=== PATIENT | male | born 1960 | race Caucasian/White ===

== ENCOUNTER 2019-06-27 17:03 | Observation (INO) | payer MEDICAID ==
[~2019-06-27] VITALS: Ht 180.3 cm; Wt 88.2 kg
[2019-06-27] MEDS ORDERED: NEURONTIN 400400 MG PO (17:12)
[2019-06-27] MEDS ORDERED: NAPROSYN500 MG PO (17:14)
[2019-06-27] MEDS ORDERED: PRINIVIL10 MG PO (17:14)
[2019-06-27] MEDS ORDERED: TRAZODONE HCL150 MG PO (17:15)
[2019-06-27] MEDS ORDERED: CRESTOR5 MG PO (17:15)
[2019-06-27] MEDS ORDERED: MOBIC7.5 MG PO (17:15)
[2019-06-27 17:30] VITALS: BP 141/68
[2019-06-27 17:45] LABS: BASOPHILS 0.5 % (0-2); EOSINOPHILS 2.8 % (0-7); HEMATOCRIT 45.7 % (42.0-54.0); IMMATURE GRANULOCYTES 0.1 % (0-5); LYMPHOCYTES 40.4 % (15-50); MCH 31.1 pg (26.0-34.0); MCV 88.9 fL (80.0-100.0); MEAN PLATELET VOLUME 11.5 fL (7.4-10.4); MONOCYTES 9.4 % (2-11); NEUTROPHILS 46.8 % (40-80); PLATELET COUNT 174 10x3/uL (130-400); RBC 5.14 10x6/uL (4.20-6.10); RDW 14.2 % (11.5-14.5); WBC 8.3 10x3/uL (4.8-10.8)
[2019-06-27 17:56] LABS: APTT 27.4 SECONDS (22.8-39.4); INR 1.08 (0.85-1.17); PROTIME 13.5 SECONDS (11.6-15.0)
[2019-06-27 18:10] LABS: ALBUMIN 3.7 g/dL (3.4-5.0); ALKALINE PHOSPHATASE 105 U/L (46-116); ALT (SGPT) 177 U/L (10-68); BILIRUBIN - TOTAL 0.45 mg/dL (0.2-1.3); CALC OSMOLALITY 281 mosm/kg (275-300); CALCIUM 8.6 mg/dL (8.5-10.1); CARBON DIOXIDE 25.5 mmol/L (21.0-32.0); CHLORIDE - SERUM 105 mmol/L (98-107); CREATININE - SERUM 0.7 mg/dL (0.6-1.3); GLUCOSE 146 mg/dL (74-106); POTASSIUM - SERUM 3.7 mmol/L (3.5-5.1); PROTEIN - SERUM 7.1 g/dL (6.4-8.2); SODIUM 138 mmol/L (136-145); UREA NITROGEN 20 mg/dL (7-18); eGFR NON AFRICAN AMERICAN > 90 mL/min (90-120)
[2019-06-27 18:30] VITALS: BP 108/78
[2019-06-27 18:37] LABS: CKMB 0.5 U/L (0.0-3.6); CREATINE KINASE 152 UL (21-232); MAGNESIUM - SERUM 1.9 mg/dL (1.8-2.4)
[2019-06-27 18:46] LABS: TROPONIN-I < 0.017 ng/mL (0.000-0.060)
[2019-06-27 19:11] VITALS: BP 135/72
--- NOTE | 2019-06-27 19:45 | NUR ---
SANDWICH TRAY PROVIDED.
[2019-06-27 20:00] VITALS: BP 125/64
--- NOTE | 2019-06-27 21:27 | NUR ---
PT ARRIVED VIA W/C FORM ER WITH SANGITA CP. NO DISTRESS NOTED. INFORMED METAL FINISHER AFTER MIDNIGHT AND NO CAFFEINE FOR AM CARDIOLYTE STRESS TEST STATED UNDERSTANDING. CALL LIGHT WITHIN REACH.
[2019-06-27 21:45] VITALS: BP 125/64; BMI 27.1
--- NOTE | 2019-06-27 22:27 | NUR ---
ADMISSION ASSESSMENT, HISTORY AND HOME MED LIST COMPLETED. PT DENIED ANY DISCOMFORT. IV TO R HAND SL. ALERT AND ORIENTED TO PERSON,PLACE AND TIME. [place]. SB PER CM GR 56. VSS. AT BEDSIDE. DR DEXTER CALLED AND PM MEDS OBTAINED. SR UP X2, CALL LIGHT WITHIN REACH.
[2019-06-28] VITALS: BP 128/66
--- NOTE | 2019-06-28 00:59 | NUR ---
PT RESTING WITH EYES CLOSED. RESP EVEN AND REGULAR. SR UP X2, CALL LIGHT WITHIN REACH.
--- NOTE | 2019-06-28 02:44 | NUR ---
PT RESTING WITH EYES CLOSED. RESP EVEN AND REGULAR. SR UP X2, CALL LIGHT WITHIN REACH.
[2019-06-28 04:00] VITALS: BP 90/50
--- NOTE | 2019-06-28 04:57 | NUR ---
PT RESTING WITH EYES CLOSED. RESP EVEN AND REGULAR. SR UP X2, CALL LIGHT WITHIN REACH.
[2019-06-28 06:45] LABS: BASOPHILS 0.3 % (0-2); EOSINOPHILS 4.3 % (0-7); HEMATOCRIT 43.2 % (42.0-54.0); HEMOGLOBIN 14.9 g/dL (13.5-17.5); IMMATURE GRANULOCYTES 0.2 % (0-5); MCHC 34.5 g/dL (31.0-37.0); MEAN PLATELET VOLUME 11.4 fL (7.4-10.4); MONOCYTES 10.6 % (2-11); NEUTROPHILS 35.6 % (40-80); PLATELET COUNT 165 10x3/uL (130-400); RDW 14.4 % (11.5-14.5); WBC 8.7 10x3/uL (4.8-10.8)
[2019-06-28 07:02] LABS: CALC OSMOLALITY 285 mosm/kg (275-300); CALCIUM 8.9 mg/dL (8.5-10.1); CARBON DIOXIDE 31.4 mmol/L (21.0-32.0); CHLORIDE - SERUM 105 mmol/L (98-107); CREATININE - SERUM 0.8 mg/dL (0.6-1.3); GLUCOSE 110 mg/dL (74-106); POTASSIUM - SERUM 3.6 mmol/L (3.5-5.1); SODIUM 141 mmol/L (136-145); UREA NITROGEN 24 mg/dL (7-18); eGFR NON AFRICAN AMERICAN > 90 mL/min (90-120)
[2019-06-28 07:06] LABS: TROPONIN-I < 0.017 ng/mL (0.000-0.060)
--- NOTE | 2019-06-28 07:30 | NUR ---
REPORT RECIEVED. PT IS SITTING UP IN BED. HAS A R HAND PIV THAT IS SL. PT IS CURRENTLY NPO FOR A CARDIAC STRESS TEST. BED LOCKED AND IN LOWEST POSITION. CALL LIGHT WITHIN REACH. RR EVEN AND UNLABORED, NO DISTRESS NOTED. WILL CTM
[2019-06-28 08:12] VITALS: Ht 180.3 cm; Wt 88.2 kg
[2019-06-28 08:17] VITALS: BP 111/54
--- NOTE | 2019-06-28 09:50 | NUR ---
RT HAND PIV INFILTRATED. REMOVED, CATH TIP FULLY INTACT. PT NOW HAS A 22G PIV IN THE LT HAND ON THE FIRST TRY.
--- NOTE | 2019-06-28 10:47 | NUR ---
BREANNE HOWELL TO NUC MED AT THIS TIME.
[2019-06-28 12:10] VITALS: BP 117/58
[2019-06-28 15:31] VITALS: BP 132/71
--- NOTE | 2019-06-28 15:43 | NUR ---
I have reviewed this patient and I concur with the Shift Assessment completed by the Licensed Practical Nurse today this shift.
--- NOTE | 2019-06-28 18:23 | NUR ---
DC PAPERWORK GONE OVER AND SIGNED WITH PT. ALL QUESTIONS ANSWERED. PIV REMOVED. CATH TIP FULLY INTACT. TELEMETRY REMOVED AND RETURNED. ALL VALUBLES REMOVED FROM ROOM. PT WHEEL TO ER ENTRANCE, PRESENT.
--- NOTE | 2019-06-29 09:33 | MORECARE ---
CASE MANAGEMENT DISCHARGE SUMMARY PATIENT: MARQUEZ ARMAS UNIT: [id number] ADM DATE: 06/27/19 AGE: 59 : 62 SEX: M ROOM/BED: D.4073 AUTHOR: GARY TERRELL PHYSICIAN: REFERRING PHYSICIAN: RAFI DEXTER MD DATE OF SERVICE: 06/29/19 Discharge Plan Patient Name: MARQUEZ ARMAS [facility] 1960 Planned Disposition: Home Anticipated Discharge Date: 06/28/19 Discharge Date: 06/28/2019 Expected LOS: 1 Initial Reviewer: [email or web address] Initial Review Date: 06/29/2019 Generated: 06/29/19 10:33 am Patient Name: MARQUEZ ARMAS Page [id number] at 0933 All edits/amendments must be made on the electronic document DICTATION DATE: 06/29/19932 OFFICE EMPLOYEE: DILEEP 06/29/19932 RPT#: [id number] DC DATE:06/28/19 STATUS: DIS IN [facility] [address] [place] [address] END OF REPORT
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
--- NOTE | 2019-06-29 11:10 | ST ---
PATIENT:MARQUEZ ARMAS MEDICAL RECORD: [id number] SEX: M LOCATION:[address] ORDER #: ADMISSION DATE: 06/27/19 AGE OF PATIENT: 59 REFERRING PHYSICIAN: INTERPRETING PHYSICIAN: RAFI DEXTER MD DATE OF SERVICE: 06/28/2019 INDICATION: Unstable angina. He was exercised on standard Lexiscan protocol with 31 mCi of sestamibi injected at peak stress, 10 mCi used previously for rest images. FINDINGS: Gated SPECT reveals a preserved ejection fraction at 69% with good wall motioning and thickening and brightening throughout all segments. SPECT imaging: Cardiolite was used as myocardial perfusion agent. There is reversibility laterally as well as anteriorly. This includes the basal, mid, apical anterior segments as well as the basal lateral and mid lateral segments. Degree of reversibility is mild anteriorly, mild to moderate laterally. The amount of myocardium involved is large. OVERALL IMPRESSION: This is an intermediate risk nuclear stress test with a relatively large amount of myocardium involved with reversibility anteriorly and laterally, possibly suggestive of multivessel coronary artery disease. TRANSINT:[id number] Voice Confirmation ID: [id number] DOCUMENT ID: [id number] RAFI DEXTER MD at 1110 CC: [id number] DICTATION DATE: 06/28/19 1729 GREENKEEPER: 06/29/19 0140 DIS IN 06/28/19 [facility] [address] [place] [address]
[2019-06-29] MEDS ORDERED: PLAVIX75 MG PO (13:01)
[2019-06-29] MEDS ORDERED: BAYER CHEWABLE81 MG PO (13:01)
== END 2019-06-28 18:26 | disposition home or self-care (01) ==
LOC: D.ER 17:03 → D.M2 19:49 → OBSVTIME 19:49 → D.EDHOLD 19:57 → D.M2 20:19
PROVIDERS: Family Medicine; ADMIT Internal Medicine Interventional Cardiology; ATTEND Internal Medicine Interventional Cardiology
DX: I20.0 Unstable angina (principal); I10 Essential (primary) hypertension; E78.5 Hyperlipidemia, unspecified; Z82.49 Family history of ischemic heart disease and other diseases of the circulatory system

== ENCOUNTER 2019-06-29 09:18 | Outpatient (CLI) | payer MEDICAID ==
[~2019-06-29] VITALS: Ht 177.8 cm; Wt 97.3 kg
--- NOTE | ~2019-06-29 | HEMODYNAMI ---
PATIENT:MARQUEZ ARMAS MEDICAL RECORD: [id number] : 62 LOCATION:[facility] ADMISSION DATE: 06/29/19 Generatedon:06/29/201912:57 Patient name: MARQUEZ ARMAS Patient #: [id number] : 1960 Date of study: 06/29/2019 Page: Of Hemodynamic Procedure Report Patient Data Patient Demographics Procedure consent was obtained First Name: MARQUEZ Gender: Male Last Name: PAWEL : 1960 Patient #: [id number] Age: 59 year(s) Race: SSN: [id number] Additional ID: [id number] Contact details [address]: [address] [place] [address] State: [place] City: [place] Zip code: [address] Past Medical History Performed procedures and imaging results Date Procedure Procedure Results Comments 06/27/2019 Stress testing Positive->Intermediate with SPECT MPI risk Allergies: No known allergies Admission Admission Data Admission Date: 06/29/2019 Admission Time: 9:18 Arrival Date: 06/29/2019 Arrival Time: 0:00 Admit Source: Other Insurance Payor: Medicaid [facility] #: [id number] Height (in.): 70.87 BSA: 2.08 (m2) Height (cm.): 180 BMI: 27.16 (kg/m2) Weight (lbs.): 194.01 Weight (kg.): 88 Lab Results Lab Result Date: 06/29/2019 Lab Result Time: 6:18 Biochemistry Name Units Result Min Max BUN mg/dl 24 --(----)-* 7 18 Creatinine mg/dl 0.8 --(-*--)-- 0.6 1.3 CBC Name Units Result Min Max Hematocrit % 43.2 --(*---)-- 42 54 Hemoglobin g/dl 16 --(--*-)-- 13.5 17.5 Procedure Procedure Types Cath Procedure Diagnostic Procedure LHC LHC w/Coronaries FFR/IVUS FFR Initial FFR Additional PCI Procedure Coronary Stent Coronary Stent Initial x2 Procedure Description Procedure Date Procedure Date: 06/29/2019 Procedure Start Time: 12:22 Procedure End Time: 12:56 Procedure Staff Name Function Tito More MD Performing Physician Sae Callejas RT Monitor Santiago Wing RT Scrub Anna Velasquez RN Nurse Indication Angina Procedure Data Cath Procedure Fluoroscopy Diagnostic fluoroscopy Total fluoroscopy Time: 8.3 time: 8.3 min min Diagnostic fluoroscopy Total fluoroscopy dose: dose: 1649 mGy 1649 mGy Contrast Material Contrast Material Type Amount (ml) Isovue 300 144 Entry Location Entry Primary Successful Side Size Upsize Upsize Entry Closure Lazo ccessful Closure Location (Fr) 1 (Fr) 2 (Fr) Remarks Device Remarks Radial Right 6 Fr Mechanical artery Short Compression Estimated blood loss: 10 ml Diagnostic catheters Device Type Used For End Catheter Placement DIAGNOSTIC [place] 110cm 5 Procedure Fr catheter ([id number]) Procedure Medications Medication Administration Route Dosage 0.9% NaCl I.V. 100 ml/hr Oxygen etCO2 Nasal cannula 2 l/min Lidocaine 2% added to field 20 Heparin Flush Bag added to field 2 bags (1000units/500ml NS) Radial Cocktail added to field 1 syringe (Verapamil 2mg/Nitro 400mcg/Heparin 1500units) Versed I.V. 2 mg Fentanyl I.V. 50 mcg Versed I.V. 2 mg Fentanyl I.V. 50 mcg Heparin Bolus I.V. 4000 units Integrilin (Bolus I.V. 9 ml 2mg/ml) Integrilin (Bolus wasted 1 ml 2mg/ml) Plavix P.O. 600 mg Hemodynamics Rest BSA: 2.08 (m2) HGB: 16 (g/dl) O2 Consumption: Estimated: 258.97 (ml/min) O2 Cons umption indexed: Estimated:124.5 (ml/min/m) Heart Rate: 87 (bpm) Pressure Samples Time Site Value (mmHg) Purpose Heart Use Rate(bpm) 12:25 LV 79/5,6 Snapshot 87 Snapshots Pre Cath Intra NCS Post Cath Vital Signs Time Heart Resp SPO2 etCO2 NIBP (mmHg) Rhythm Pain Sedation Rate (ipm) (%) (mmHg) Status Level (bpm) 12:12:28 64 12 99 36.7 138/80(102) NSR 0 (11) 10(A) , No pain 12:16:46 69 15 98 35.9 111/79(90) NSR 0 (11) 10(A) , No pain 12:20:57 75 16 97 36.7 112/73(89) NSR 0 (11) 10(A) , No pain 12:25:09 85 16 98 20.9 109/68(78) NSR 0 (11) 10(A) , No pain 12:29:21 80 15 98 36.7 101/66(88) NSR 0 (11) 10(A) , No pain 12:33:31 79 15 98 35.9 107/66(84) NSR 0 (11) 10(A) , No pain 12:37:41 83 16 100 36.7 100/66(82) NSR 0 (11) 10(A) , No pain 12:41:49 80 16 98 36.7 108/66(85) NSR 0 (11) 10(A) , No pain 12:46:01 76 15 98 37.4 105/61(90) NSR 0 (11) 10(A) , No pain 12:50:09 77 11 98 34.4 114/74(90) NSR 0 (11) 10(A) , No pain 12:54:39 71 15 99 35.9 116/74(92) NSR 0 (11) 10(A) , No pain Medications Time Medication Route Dose Verified Delivered Reason Not es Effectiveness by by 12:11:35 0.9% NaCl I.V. 100 Tito Anna used for ml/hr Argenis Velasquez vault worker 12:11:42 Oxygen etCO2 2 l/min Tito Anna used for Nasal Argenis Velasquez procedure cannula RN 12:11:46 Lidocaine 2% added 20ml Tito Francis for local to vial Argenis More MD anesthetic field 12:11:50 Heparin Flush added 2 bags Tito Francis used for Bag to Argenis More MD procedure (1000units/500ml field NS) 12:11:55 Radial Cocktail added 1 [place] Francis used for (Verapamil to syringe Argenis More MD procedure 2mg/Nitro field 400mcg/Heparin 1500units) 12:16:38 Versed I.V. 2 mg Tito Anna for sedation Argenis Velasquez RN 12:16:48 Fentanyl I.V. 50 mcg Tito Anna for sedation Argenis Velasquez RN 12:23:56 Versed I.V. 2 mg Tito Anna for sedation Argenis Velasquez RN 12:24:01 Fentanyl I.V. 50 mcg Tito Anna for sedation Argenis Velasquez RN 12:35:59 Heparin Bolus I.V. 4000 Tito Anna for simeon ified units Argenis Velasquez anticoagulation with Dr. ALIA More 12:36:12 Integrilin I.V. 9 ml Tito Anna for (Bolus 2mg/ml) Argenis Velasquez antiplatelet RN therapy 12:36:29 Integrilin wasted 1 ml Tito Anna for (Bolus 2mg/ml) Argenis Velasquez antiplatelet RN therapy 12:36:39 Plavix P.O. 600 mg Tito Anna for Argenis Velasquez antiplatelet RN therapy Procedure Log Time Note 11:45:32 Sae PULLIAM(R) (CV) sent for patient. Start room use. 11:54:06 Informed consent obtained and on chart 11:55:46 Lab Result : BUN 24 mg/dl 11:55:46 Lab Result : Hemoglobin 16 g/dl 11:55:46 Lab Result : Creatinine 0.8 mg/dl 11:55:46 Lab Result : Hematocrit 43.2 % 11:56:02 Diagnostic Cath Status : Elective 11:56:08 Indication : Angina 11:56:31 Admit Source: Other 11:57:12 Patient Weight : 194.01 lbs 11:57:16 Patient Height : 70.87 inches 11:57:21 Insurance Payor : Medicaid 11:57:35 Arrival Date: 06/29/2019 12:00:00 AM 11:59:28 ACC Patient presents with Unstable Angina CCS Anginal Class 4--Inability to carry out any physical activity w/o angina. Angina may occur at rest. 11:59:35 ACCPatient has been prescribed/administered the following anti-anginal medication within the last 2 weeks: CHANELLE-Inhibitor 12:00:30 Procedure Status Elective Heart Cath (OP). 12:00:40 Time tracking: Regular hours (M-F 7:00 - 5:00) 12:00:43 Plan of Care:Hemodynamics will remain stable., Cardiac rhythm will remain stable., Comfort level will be maintained., Respiratory function will remain adequate., Patient/ family verbilizes understanding of procedure., Procedure tolerated without complication., Recovers from procedure without complications.. 12:00:47 Patient received from Pre/Post Procedure Room to CCL 2 Alert and oriented. Tansferred to table in Supine position. 12:00:48 Warm blankets applied, and brandon hugger turned on for patient comfort. 12:00:48 Correct patient and procedure confirmed by team. 12:00:49 ECG and BP/O2 sat monitors applied to patient. 12:00:50 Pre-procedure instructions explained to patient. 12:00:50 Pre-op teaching completed and patient verbalized understanding. 12:00:57 H&P Date Dictated: 06/29/2019 Within 30 days and on chart., H&P Addendum completed by physician on day of procedure. (MUST COMPLETE FOR ALL OUTPATIENTS). 12:11:18 Vital chart was started 12:11:35 0.9% NaCl 100 ml/hr I.V. was administered by Anna Velasquez RN; used for procedure; 12:11:42 Oxygen 2 l/min etCO2 Nasal cannula was administered by Anna Velasquez RN; used for procedure; 12:11:46 Lidocaine 2% 20ml vial added to field was administered by Tito More MD; for local anesthetic; 12:11:46 Family in patients room. 12:11:49 Patient NPO since Midnight. 12:11:50 Heparin Flush Bag (1000units/500ml NS) 2 bags added to field was administered by Tito More MD; used for procedure; 12:11:55 Radial Cocktail (Verapamil 2mg/Nitro 400mcg/Heparin 1500units) 1 syringe added to field was administered by Tito More MD; used for procedure; 12:11:58 Patient allergic to No known allergies 12:12:03 Is patient on blood thinner?No 12:12:06 Patient diabetic? No. 12:12:10 ----Pre-sedation anethsthesia assessment.---- 12:12:13 Previous problem with sedation/anesthesia? No ? 12:12:15 Snore? Yes 12:12:17 Sleep apnea? No 12:12:19 Deviated septum? No 12:12:20 Opens mouth fully? Yes 12:12:22 Sticks out tongue? Yes 12:12:26 Airway obstruction? No ? 12:12:29 Dentures? No ? 12:12:33 Pre procedure: right dorsailis pedis pulse 1+ Palpable, but thready & weak; easily obliterated 12:12:45 Patient pain scale 0/10 ?. 12:12:56 IV patent on arrival in right antecubital with 0.9% NaCl at [facility]. 12:12:59 Lab results completed and on chart. 12:13:10 Right Radial & Right Groin area was prepped with chlora-prep and draped in sterile fashion 12:13:11 Alarms reviewed by R. N. 12:13:12 Sharps counted by scrub and verified by R.N. 12:15:19 Physician arrived 12:15:20 --------ALL STOP TIME OUT------ 12:15:20 Final Timeout: patient, procedure, and site verified with staff and physician. All members of the team are in agreement. 12:15:22 Right Radial & Right Groin site verified by team. 12:15:26 Fire Safety Assessment: A--An alcohol-based skin anteseptic being used preoperatively., C--Open oxygen or nitrous oxide is being used., D--An ESU, laser, or fiber-optic light is being used. 12:15:29 Physical assessment completed. ASA score P 2 - A patient with mild systemic disease as per Tito More MD. 12:15:33 1) 90+ Normal kidney functon but urine findings or structural abnormalities or genetic trait point to kidney disease. 12:15:38 Maximum allowable contrast dose (3.7 X eGFR X 0.75)249 ml. 12:15:43 Sedation plan: IV Moderate Sedation Medication:Versed, Fentanyl 12:15:53 Use device set Radial Dx or PCI 12:16:00 ACIST Syringe (85078) opened to sterile field. 12:16:02 Medline Cath Pack ([id number]) opened to sterile field. 12:16:03 Bag Decanter (2002) opened to sterile field. 12:16:03 ACIST Hand Control (33890) opened to sterile field. 12:16:04 ACIST Manifold (61849) opened to sterile field. 12:16:05 Tegaderm 4 x 4 (1626W) opened to sterile field. 12:16:13 MBrace Wrist Support (600846943) opened to sterile field. 12:16:21 EMERALD Guide Wire (502-401) opened to sterile field. 12:16:22 SHEATH 6FR RAIN (5504414) opened to sterile field. 12:16:38 Versed 2 mg I.V. was administered by Anna Velasquez RN; for sedation; 12:16:48 Fentanyl 50 mcg I.V. was administered by Anna Velasquez RN; for sedation; 12::42 Zero performed for pressure channel P1 12:17:48 Zero performed for pressure channel P1 12::12 Procedure started. 12:22:12 Full Disclosure recording started 12:: Local anesthetic to right radial artery with Lidocaine 2% by Tito More MD.INITIAL ACCESS ONLY 12::42 A 6 Fr Short sheath was inserted into the Right Radial artery 12:23:44 A DIAGNOSTIC [place] 110cm 5 Fr catheter (462827) was advanced over the wire and used for Procedure. 12::56 Versed 2 mg I.V. was administered by Anna Velasquez RN; for sedation; 12:24:01 Fentanyl 50 mcg I.V. was administered by Anna Velasquez RN; for sedation; 12:25:38 LV hemodynamics recorded. 12:25:41 LV gram done using HOGAN 12:25:56 EF : 60 % 12:26:05 RCA angiography performed. 12:27:01 Catheter removed. 12:27:18 GUIDE 6FR XBLAD 3.5 catheter ([id number]) opened to sterile field. 12:28:07 6 Fr XBLAD 3.5 guide catheter was inserted over the wire 12:28:55 LCA angiography performed. 12:32:05 Oley Verrata Plus pressure wire (50854G) opened to sterile field. 12:32:06 INFLATOR Merit BasixCompak (EJ0577) opened to sterile field. 12:32:32 Proceeding to intervention. 12:32:37 FFR/IFR wire advanced. 12:32:43 Wire advanced across lesion. 12:33:19 mLAD lesion measured at 0.86 with IFR 12:35:03 Pre PCI Site: [place] mLAD has 70% stenosis. 12:35:59 Heparin Bolus 4000 units I.V. was administered by Anna Velasquez RN; for anticoagulation; verified with Dr. More 12:36:12 Integrilin (Bolus 2mg/ml) 9 ml I.V. was administered by Anna Velasquez RN; for antiplatelet therapy; 12:36:29 Integrilin (Bolus 2mg/ml) 1 ml wasted was administered by Anna Velasquez RN; for antiplatelet therapy; 12:36:39 Plavix 600 mg P.O. was administered by Anna Velasquez RN; for antiplatelet therapy; 12:37:08 Place stent Inflation Number: 1 A YENNI RX 3.0 x 12 stent ([id number]) was prepped and advanced across the Mid LAD 70. The stent was deployed at 9 JACK for 0:10 (min:sec) 0. 12:37:22 Stent catheter was removed intact over wire. 12:38:46 Place stent Inflation Number: 1 A YENNI RX 3.0 x 26 stent ([id number]) was prepped and advanced across the Prox LAD 70. The stent was deployed at 13 JACK for 0:10 (min:sec) 0. 12:39:00 Stent catheter was removed intact over wire. 12:39:14 Wire removed. 12:39:30 Guide catheter removed. 12:40:21 6 Fr HS 1 guide catheter was inserted over the wire 12:47:18 Place stent Inflation Number: 1 A YENNI RX 3.5 x 26 stent ([id number]) was prepped and advanced across the Mid RCA 80. The stent was deployed at 21 JACK for 0:10 (min:sec) 0. 12:48:42 Stent catheter was removed intact over wire. 12:48:43 Wire removed. 12:48:44 Guide catheter removed. 12:50:54 ZEPHYR LARGE TR BAND (483725) opened to sterile field. 12:52:44 Sheath removed intact; hemostasis achieved with Mechanical Compression to the Right Radial artery. 12:53:09 Procedure ended.(Physican Out) 12:53:30 Fluoroscopy time 08.30 minutes. 12:53:37 Fluoroscopy dose: 1649 mGy 12:53:37 Flurop Dose total: 1649 12:53:43 Dose Area Product 52477 mGy/cm. 12:54:17 Contrast amount:Isovue 300 144ml. 12:54:23 Maximum allowable dose exceeded? No. 12:54:25 Sharps counted by scrub and verified by R.N. 12:54:37 Stilwell band inflated with 8cc of air. 12:54:40 Insertion/operative site no bleeding no hematoma. 12:54:45 Post right radial artery:stable 12:54:55 Post-procedure physical assessment completed. ASA score P 2 - A patient with mild systemic disease as per Tito More MD. 12:55:20 Procedure type changed to Cath procedure, Diagnostic procedure, LHC, LHC w/Coronaries, FFR/IVUS, FFR Initial, FFR Additional, PCI procedure, Coronary Stent, Coronary Stent Initial x2 12:56:01 Post procedure rhythm: sinus rhythm 12:56:05 Estimated blood loss: 10 ml 12:56:09 Post procedure instruction explained to patient.Patient verbalizes understanding. 12:56:11 Patient needs reinforcement of post procedure teaching. 12:56:12 Procedure and supply charges have been captured, reviewed, submitted and are correct. 12:56:15 Vital chart was stopped 12:56:16 See physician's report for complete and final results. 12:56:21 Report given to Pre/Post Procedure Room. 12:56:26 Patient transfered to Pre/Post Procedure Room with Stretcher. 12:56:28 Procedure ended. 12:56:28 Full Disclosure recording stopped 12:56:32 End room use (Document Last) Intervention Summary Intervention Notes Time ActionType Lesion and Equipment Used Action# Pressure Duration Attributes 12:37:08 Place stent Mid LAD YENNI RX 3.0 x 1 9 00:10 12 stent ([id number]) 12:38:46 Place stent Prox LAD YENNI RX 3.0 x 1 13 00:10 26 stent ([id number]) 12:47:18 Place stent Mid RCA YENNI RX 3.5 x 1 21 00:10 26 stent ([id number]) Device Usage Item Name Manufacture Quantity Catalog Hospital Part Current Minimal Lot# / Number Charge Number Stock Stock Serial# Code ACIST Syringe Acist 1 63337 310122 876330 586687 20 (11327) OpenDoor Inc Medline Cath Medline 1 [id number] 197571 13082 688054 5 Pack ([id number]) Bag Decanter Microtek 1 251621 28158 441221 5 (2002S) Medical Inc. ACIST Hand Acist 1 65176 408021 756766 999340 5 Control Medical (90891) Systems Inc ACIST Manifold Acist 1 45019 795962 344929 010153 5 (30842) Medical Systems Inc Tegaderm 4 x 4 3M 1 1626W 965053 815626 350922 5 (1626W) MBrace Wrist Advanced 1 140-0250-00 329545 70660 720864 5 Support Vascular ([id number]) Dynamics EMERALD Guide Cardinal 1 502-455 947622 445033 623586 5 Wire (502455) Health SHEATH 6FR Cardinal 1 7620216 578094 3873839 842790 5 RAIN (5858595) Health DIAGNOSTIC Terumo 1 40-0603 658241 108019 715838 5 [place] 110cm 5 Fr catheter (886543) GUIDE 6FR Cardinal 1 91433483 423052 554855 181774 10 XBLAD 3.5 Health catheter (54787687) Oley Oley 1 [id number] 332280 868674109 348621 5 Verrata Plus pressure wire (75695N) INFLATOR Merit Merit 1 [id number] 240284 500243 852339 15 BasixEvoke Pharmasck Medical (IZ4884) YENNI RX 3.0 x Medtronic 1 [id number] 497419 5374197 155188 5 [id number] 12 stent ([id number]) YENNI RX 3.0 x Medtronic 1 [id number] 075277 0968331 389311 5 [id number] 26 stent ([id number]) YENNI RX 3.5 x Medtronic 1 [id number] 523199 8360633 061316 5 [id number] 26 stent ([id number]) ZEPHYR LARGE Cardinal 1 339733 458280 6809338 117230 5 AlienVault (296806) Signature Audit [place] Stage Time Signature Unsigned Intra-Procedure 06/29/2019 Sae Callejas 12:57:16 PM RT(R) (CV) Signatures Performing Physician : Signature : Tito More MD Date : Time : Monitor : Sae Callejas RT Signature : Date : Time : Nurse : Anna Velasquez RN Signature : Date : Time : [address] [place] [address]
[~2019-06-29 09:18] MED LIST: CRESTOR5 MG PO; MOBIC7.5 MG PO; NAPROSYN500 MG PO; NEURONTIN 400400 MG PO; PRINIVIL10 MG PO; TRAZODONE HCL150 MG PO
[2019-06-29 10:03] VITALS: BP 171/68; Ht 177.8 cm; Wt 97.3 kg
[2019-06-29 10:18] LABS: BASOPHILS 0.4 % (0-2); EOSINOPHILS 1.4 % (0-7); HEMATOCRIT 48.7 % (42.0-54.0); HEMOGLOBIN 17.2 g/dL (13.5-17.5); IMMATURE GRANULOCYTES 0.3 % (0-5); LYMPHOCYTES 39.3 % (15-50); MCH 31.7 pg (26.0-34.0); MCHC 35.3 g/dL (31.0-37.0); MCV 89.9 fL (80.0-100.0); MEAN PLATELET VOLUME 11.6 fL (7.4-10.4); NEUTROPHILS 46.6 % (40-80); PLATELET COUNT 182 10x3/uL (130-400); RBC 5.42 10x6/uL (4.20-6.10); RDW 14.6 % (11.5-14.5); WBC 7.7 10x3/uL (4.8-10.8)
[2019-06-29 10:35] LABS: CHOL - HDL RATIO 4.2 ratio (2.3-4.9); LDL-HDL RATIO 2.7 ratio (1.5-3.5)
[2019-06-29 10:36] LABS: CALC OSMOLALITY 284 mosm/kg (275-300); CALCIUM 9.3 mg/dL (8.5-10.1); CHLORIDE - SERUM 104 mmol/L (98-107); CREATININE - SERUM 0.7 mg/dL (0.6-1.3); GLUCOSE 121 mg/dL (74-106); SODIUM 141 mmol/L (136-145); UREA NITROGEN 20 mg/dL (7-18); eGFR NON AFRICAN AMERICAN > 90 mL/min (90-120)
[2019-06-29 10:39] LABS: POTASSIUM - SERUM 4.2 mmol/L (3.5-5.1)
--- NOTE | 2019-06-29 13:00 | NUR ---
PT RECEIVED VIA STRETCHER FROM HARNESS INSPECTOR POST PROCEDURE. PT AWAKE, DENIES PAIN OR DISCOMFORT. TR BAND AND IMMOBILIZER TO R WRIST, DRESSING CDI NO BLEEDING OR HEMATOMA NOTED. ARM PINK AND WARM, CAP REFILL BRISK. IV PATENT INFUSING VIA ORDERS TO R ARM. HR NSR RATE 76, BP 145/83, 02 SAT 88 ON ROOM AIR. O2 PLACED AT 2L/NC. AT BEDSIDE, CALL LIGHT IN REACH
[2019-06-29] MEDS ORDERED: BAYER CHEWABLE81 MG PO (13:01)
[2019-06-29] MEDS ORDERED: PLAVIX75 MG PO (13:01)
--- NOTE | 2019-06-29 13:32 | NUR ---
PT SITTING UP IN BED TALKING ON PHONE. TR BAND AND IMMOBILIZER IN PLACE, DRESSING CDI NO BLEEDING OR HEMATOMA NOTED. ARM PINK AND WARM, CAP REFILL BRISK. VSS. CALL LIGHT IN REACH
--- NOTE | 2019-06-29 14:02 | NUR ---
PT SITTING UP IN BED EATING LUNCH BROUGHT BY FAMILY. Z BAND IN PLACE, DRESSING CDI NO BLEEDING OR SWELLING NOTED. CAP REFILL BRISK, ARM PINK AND WARM. VSS. CALL LIGHT IN REACH
--- NOTE | 2019-06-29 14:35 | NUR ---
PT SITTING UP IN BED WATCHING TV TALKING W . DENIES PAIN OR DISCOMFORT. Z BAND IN PLACE, DRESSING REMAINS CDI NO BLEEDING OR HEMATOMA NOTED. EXTREMITY WARM AND PINK, CAP REFILL BRISK. HR NSR RATE 72, BP 115/66, 02 SAT 95 ON 2L/NC. AT BEDSIDE, CALL LIGHT IN REACH
--- NOTE | 2019-06-29 15:00 | NUR ---
PT RESTING W EYES CLOSED, Z BAND AND IMMOBILIZER IN PLACE, DRESSING REMAINS CDI NO BLEEDING OR HEMATOMA NOTED. ARM PINK AND WARM, CAP REFILL BRISK. AT BEDSIDE, CALL LIGHT IN REACH. O2 REMOVED. VSS.
--- NOTE | 2019-06-29 15:33 | NUR ---
PT RESITNG W EYES CLOSED, AT BEDSIDE. Z BAND AND IMMOBILIZER IN PLACE NO BLEEDING OR SWELLING NOTED. HR 64, BP 98/58, O2 SAT 92 ON ROOM AIR. CALL LIGHT IN REACH
--- NOTE | 2019-06-29 16:00 | NUR ---
AIR REMOVAL BEGAN FROM ZEPHOR BAND PER PROTOCOL. 5 CC REMOVED, SMALL AMOUNT OF BLEEDING NOTED SO 2CC AIR REPLACED. NO BLEEDING OR HEMATOMA NOTED. VSS. REMAINS AT BEDSIDE. CALL LIGHT IN REACH
--- NOTE | 2019-06-29 16:15 | NUR ---
3cc OF AIR REMOVED FROM BAND. NO BLEEDING/HEMATOMA NOTED. FAMILY AT BEDSIDE. CALL LIGHT WITHIN REACH. VSS.
--- NOTE | 2019-06-29 16:30 | NUR ---
PIV D/C'D WITH CATH TIP INTACT. PT TOLERATED WELL. Z BAND REMOVED. DRESSING APPLIED. NO BLEEDING/HEMATOMA NOTED. PT'S FAMILY AT BEDSIDE TO ASSIST GETTING DRESSED.
--- NOTE | 2019-06-29 16:50 | NUR ---
DISCUSSED DISCHARGE INSTRUCTIONS WITH PT AND PT'S FAMILY. THEY VOICED UNDERSTANDING. PT VOIDED IN URINAL WITHOUT DIFFICULTY.
--- NOTE | 2019-06-29 16:58 | NUR ---
PT TAKEN OUT TO VEHICLE BY WHEELCHAIR. NO S/S OF DISTRESS NOTED. RIGHT WRIST DRESSING C/D/I. NO S/S OF HEMATOMA NOTED. ALL BELONGINGS AND PAPERWORK IN HAND.
--- NOTE | 2019-07-02 10:47 | OP ---
PATIENT NAME: MARQUEZ ARMAS MEDICAL RECORD: [id number] :62 LOCATION:D.CAT ADMISSION DATE: SURGEON: RAFI DEXTER MD DATE OF OPERATION: 06/29/2019 DATE OF SERVICE: 06/29/2019 PROCEDURES: 1. PTCA stent LAD. 2. PTCA stent RCA. 3. IFR LAD. 4. IFR RCA. 5. Left heart catheterization. 6. Selective coronary angiography. 7. Left ventriculogram. INDICATION: Angina and coronary artery disease. PROCEDURE PERFORMED: After informed consent was obtained and after a detailed description of risks, benefits as well as alternative therapies, the patient elected to proceed with angiogram and angioplasty. The right femoral area was prepped and draped in normal sterile fashion. Right femoral artery was cannulated via modified Seldinger technique with placement of 6-Turkmen sheath. All catheters exchanged through this sheath. FINDINGS: The left ventriculogram was performed in standard 30-degree HOGAN view, reveals good cardiac wall motion, ejection fraction estimated at 60%. SELECTIVE CORONARY ANGIOGRAPHY: 1. Left main has no significant angiographic disease. 2. Left anterior descending has what appears to be 70% stenosis times 2. An IFR was significantly abnormal. 3. Left circumflex has moderate irregularities, but no flow-limiting stenosis. 4. Right coronary has at least 70% stenosis that appears ulcerated in the proximal aspect. IFR is abnormal. PTCA STENT OF THE RCA: The stent used was a 3.5 x 26 mm Lonnie. Result was 0% residual stenosis. PTCA STENT OF THE LAD: The stents used were 3.0 x 26 and 3.0 x 12 both [place] stents. Result was 0% residual stenosis. OVERALL IMPRESSION: Successful percutaneous transluminal coronary angioplasty stent left anterior descending and right coronary artery, both going from 70% initial stenosis to 0% residual. TRANSINT:[id number] Voice Confirmation ID: [id number] DOCUMENT ID: [id number] OPERATIVE REPORT [id number] MARQUEZ ARMAS JEFFREY MD at 1047 CC: [id number] DICTATION DATE: 06/29/19 1252 TALLOW REFINER: 06/29/19 1304 DEP CLI 06/29/19 [place] [address]
== END 2019-06-29 16:58 | disposition home or self-care (01) ==
LOC: D.CATH 09:18
PROVIDERS: ATTEND Internal Medicine Interventional Cardiology
DX: I25.119 Atherosclerotic heart disease of native coronary artery with unspecified angina pectoris (principal); Z01.812 Encounter for preprocedural laboratory examination
CPT/HCPCS: C9600 ×2; 93458; 93571; 93572

== ENCOUNTER → 2019-10-05 20:17 | Outpatient (CLI) | payer MEDICAID ==
[2019-06-29 10:03] VITALS: BMI 30.7
[~2019-10-05 20:17] MED LIST changes: +BAYER CHEWABLE81 MG PO; +PLAVIX75 MG PO
== END | disposition home or self-care (01) ==
LOC: D.LABREF 20:17
PROVIDERS: ATTEND Internal Medicine Interventional Cardiology
DX: I25.10 Atherosclerotic heart disease of native coronary artery without angina pectoris (principal)

== ENCOUNTER 2019-12-20 19:02 | Inpatient (IN) | payer MEDICAID ==
[~2019-12-20] VITALS: Ht 177.8 cm; Wt 101.2 kg
[~2019-12-20 19:02] MED LIST changes: +ALBUTEROL SULF8.5 GM INH; +CYCLOBENZAPRINE10 MG PO; +PREDNISONE10 MG PO; +TYLENOL W/CODEI1 TAB PO
[2019-12-20 20:11] LABS: BASOPHILS 0.5 % (0-2); EOSINOPHILS 6.9 % (0-7); IMMATURE GRANULOCYTES 0.8 % (0-5); LYMPHOCYTES 32.7 % (15-50); MCH 31.4 pg (26.0-34.0); MCHC 34.1 g/dL (31.0-37.0); MCV 92.2 fL (80.0-100.0); MEAN PLATELET VOLUME 10.3 fL (7.4-10.4); MONOCYTES 9.4 % (2-11); NEUTROPHILS 49.7 % (40-80); PLATELET COUNT 223 10x3/uL (130-400); RBC 4.77 10x6/uL (4.20-6.10); RDW 13.8 % (11.5-14.5); WBC 10.7 10x3/uL (4.8-10.8)
[2019-12-20 20:27] LABS: CALC OSMOLALITY 283 mosm/kg (275-300); CALCIUM 8.9 mg/dL (8.5-10.1); CARBON DIOXIDE 28.9 mmol/L (21.0-32.0); CHLORIDE - SERUM 105 mmol/L (98-107); CREATININE - SERUM 0.9 mg/dL (0.6-1.3); GLUCOSE 198 mg/dL (74-106); POTASSIUM - SERUM 4.2 mmol/L (3.5-5.1); SODIUM 140 mmol/L (136-145); UREA NITROGEN 9 mg/dL (7-18); eGFR NON AFRICAN AMERICAN > 90 mL/min (90-120)
[2019-12-20 20:31] LABS: ALBUMIN 3.5 g/dL (3.4-5.0); ALKALINE PHOSPHATASE 122 U/L (30-120); ALT (SGPT) 52 U/L (10-68); BILIRUBIN - TOTAL 0.33 mg/dL (0.2-1.3); PROTEIN - SERUM 7.8 g/dL (6.4-8.2)
[2019-12-20 21:00] VITALS: BP 136/66
[2019-12-20 21:16] LABS: CKMB 0.3 U/L (0.0-3.6); CREATINE KINASE 102 UL (21-232); MAGNESIUM - SERUM 2.2 mg/dL (1.8-2.4)
[2019-12-20 21:17] LABS: TROPONIN-I < 0.017 ng/mL (0.000-0.060)
--- NOTE | 2019-12-20 22:00 | NUR ---
PT LEFT ED VIA WC FOR CT
--- NOTE | 2019-12-20 22:12 | NUR ---
PT RETURNED VIA WC
[2019-12-20 22:24] VITALS: BP 132/67
[2019-12-20 23:00] VITALS: BP 134/67
--- NOTE | 2019-12-20 23:05 | NUR ---
PT PROVIDED SANDWICH BOX AND WATER. PT SITTING UPRIGHT IN BED. SPOUSE AT BEDSIDE.
--- NOTE | 2019-12-21 00:01 | NUR ---
PT UPDATED ON PLAN OF CARE. PT DENIES NEEDS AT THIS TIME.
[2019-12-21 00:42] VITALS: BP 150/73
--- NOTE | 2019-12-21 00:42 | NUR ---
Received pt from ED via wheelchair to room 2306 at this time. Pt is able to transfer self to the bed with minimal assistance from staff. Pt attached to ICU monitors, monitors on and working appropriately. Pt denies needs at this time. No s/s of distress. Will continue to monitor.
[2019-12-21 00:54] VITALS: BP 160/83; Ht 177.8 cm; Wt 101.2 kg
[2019-12-21] MEDS ORDERED: ZOLOFT50 MG PO (01:06)
[2019-12-21] MEDS ORDERED: KLONOPIN1 MG PO (01:10)
[2019-12-21] MEDS ORDERED: ZANAFLEX2 M1 PO (01:12)
[2019-12-21 03:00] VITALS: BP 120/52
--- NOTE | 2019-12-21 03:00 | NUR ---
Pt is resting in bed trying to sleep at this time. No needs voiced. No s/s of distress noted. Will continue to monitor.
[2019-12-21 07:00] VITALS: BP 131/69
[2019-12-21 11:00] VITALS: BP 131/54
--- NOTE | 2019-12-21 17:00 | NUR ---
PT RECEIVED FROM ICU TO ROOM 221 VIA W/C. PT ALERT AND ORIENTED TO PERSON PLACE TIME AND SITUATION. HEALING GASH TO RIGHT TOP OF HEAD, SITE WITHOUT REDNESS, EDEMA OR DRAINAGE. BRACE TO LEFT WRIST. IV TO RIGHT HAND WITH NS @ 100ML/HR INFUSING VIA PUMP. SITE WITHOUT REDNESS OR EDEMA. ORIENTED TO ROOM, CL AND BED CONTROLS. CL WITHIN REACH. ENCOURAGED TO CALL WITH NEEDS. CONTINUE POC
--- NOTE | 2019-12-21 18:48 | MORECARE ---
CASE MANAGEMENT DISCHARGE SUMMARY PATIENT: MARQUEZ ARMAS UNIT: [id number] ADM DATE: 12/20/19 AGE: 59 : 62 SEX: M ROOM/BED: D.2212 AUTHOR: GARY TERRELL PHYSICIAN: REFERRING PHYSICIAN: YAMILEX CYR MD DATE OF SERVICE: 12/21/19 Discharge Plan Patient Name: MARQUEZ ARMAS Facility: [facility]:[place] : 1960 Planned Disposition: Anticipated Discharge Date: Discharge Date: Expected LOS: Initial Reviewer: [email or web address] Initial Review Date: 12/21/2019 Generated: 12/21/19 7:47 pm Patient Name: MARQUEZ ARMAS Page 15924 at 1848 All edits/amendments must be made on the electronic document DICTATION DATE: 12/21/191846 GUEST RELATION OFFICER: DILEEP 12/21/191846 RPT#: [id number] DC DATE: STATUS: ADM IN [facility] [address] [place] [address] END OF REPORT
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
--- NOTE | 2019-12-21 19:40 | NUR ---
PT SITTING UP ON SIDE OF BED JUST OUT OF SHOWER. IV RIGHT HAND, FLUSHES EASILY, NO REDNESS OR SWELLING. CONNECT TO PUMP, INFUSING NS @ 100. LACERATION TO RIGHT HEAD, CDI. LEFT HAND BRACE IN PLACE. PT HAS OCCASIONAL COUGH. PILLOW PROVIDED TO SPLINT CHEST. STATES PAIN IN CHEST 10/10 WHEN COUGHING. MORPHINE GIVEN ORDERED. DENIES OTHER NEEDS. CL IN REACH, WILL CTM
--- NOTE | 2019-12-22 | NUR ---
PT STATES PAIN 8/10 IN CHEST AND BACK WHEN COUGHING. MORPHINE GIVEN ORDERED. DENIES OTHER NEEDS. AT BEDSIDE. CL IN REACH, WILL CTM
--- NOTE | 2019-12-22 04:00 | NUR ---
PT STATES PAIN 6/10 IN CHEST WHEN COUGHING AND MOVING AROUND. GAVE MORPHINE ORDERED. PROVIDED PT WITH COFFEE. DENIES OTHER NEEDS. WILL CTM
[2019-12-22 05:20] VITALS: BP 110/72
[2019-12-22 05:48] LABS: CALCIUM 8.1 mg/dL (8.5-10.1); CARBON DIOXIDE 25.5 mmol/L (21.0-32.0); CHLORIDE - SERUM 104 mmol/L (98-107); CREATININE - SERUM 0.8 mg/dL (0.6-1.3); MAGNESIUM - SERUM 2.1 mg/dL (1.8-2.4); PHOSPHOROUS 3.1 mg/dL (2.5-4.9); POTASSIUM - SERUM 3.9 mmol/L (3.5-5.1); SODIUM 138 mmol/L (136-145); eGFR NON AFRICAN AMERICAN > 90 mL/min (90-120)
[2019-12-22 05:53] LABS: CALC OSMOLALITY 285 mosm/kg (275-300); GLUCOSE 277 mg/dL (74-106); UREA NITROGEN 12 mg/dL (7-18)
[2019-12-22 07:31] LABS: HEMATOCRIT 41.9 % (42.0-54.0); HEMOGLOBIN 13.6 g/dL (13.5-17.5); LYMPHOCYTES 30.8 % (15-50); MCH 30.4 pg (26.0-34.0); MCHC 32.5 g/dL (31.0-37.0); MCV 93.7 fL (80.0-100.0); MEAN PLATELET VOLUME 10.5 fL (7.4-10.4); NEUTROPHILS 59.7 % (40-80); PLATELET COUNT 194 10x3/uL (130-400); RBC 4.47 10x6/uL (4.20-6.10); RDW 14.5 % (11.5-14.5); WBC 14.2 10x3/uL (4.8-10.8)
--- NOTE | 2019-12-22 08:02 | NUR ---
MEDICATED WITH MORPHINE FOR C/O PAIN IN CHEST/RIBS RATING 9. CL IN REACH. FAMILY AT BEDSIDE.
[2019-12-22 09:04] VITALS: BP 129/71
[2019-12-22 13:41] VITALS: BP 114/78
[2019-12-22 15:49] LABS: APPEARANCE CLEAR (CLEAR); BILIRUBIN NEGATIVE (NEGATIVE); COLOR YELLOW (YELLOW); GLUCOSE NEGATIVE (NEGATIVE); KETONE NEGATIVE (NEGATIVE); NITRITE NEGATIVE (NEGATIVE); PROTEIN NEGATIVE (NEGATIVE); UROBILINOGEN NORMAL (NORMAL)
[2019-12-22 17:51] VITALS: BP 137/79
--- NOTE | 2019-12-22 18:51 | NUR ---
PATIENT IN BED WITH IV INTACT. NO COMPLAINTS OR SIGNS OF DISTRESS. BRACE TO LEFT WRIST. CALL LIGHT WITHIN REACH.
--- NOTE | 2019-12-22 19:20 | NUR ---
PT SITTING UP ON SIDE OF BED WITHOUT DISTRESS, AOX4. AT BEDSIDE. IV RIGHT HAND INFUSING NS @ 100. LEFT WRIST IN BRACE. HEAD LACERATION CDI. PAIN IN CHEST WITH DEEP BREATHING AND COUGHING. WILL GIVE PAIN MED ORDERED. DENIES NEEDS AT THIS TIME. CL IN REACH, WILL CTM
[2019-12-22 20:00] VITALS: BP 126/68
--- NOTE | 2019-12-22 21:30 | NUR ---
HS MEDS GIVEN. MORPHINE GIVEN FOR PAIN 08/12. DENIES OTHER NEEDS. WILL CTM
[2019-12-23] VITALS: BP 104/62
--- NOTE | 2019-12-23 02:00 | NUR ---
PT STATES PAIN 8/10 IN CHEST, GAVE MORPHINE ORDERED. PT AMBULATED IN [place] TO GET COFFEE. DENIES OTHER NEEDS. CL IN REACH, WILL CTM
[2019-12-23 04:00] VITALS: BP 103/58
[2019-12-23 06:27] LABS: BASOPHILS 0.5 % (0-2); EOSINOPHILS 4.7 % (0-7); HEMOGLOBIN 13.6 g/dL (13.5-17.5); IMMATURE GRANULOCYTES 1.2 % (0-5); LYMPHOCYTES 36.7 % (15-50); MCH 30.8 pg (26.0-34.0); MCHC 33.2 g/dL (31.0-37.0); MCV 92.8 fL (80.0-100.0); MEAN PLATELET VOLUME 10.4 fL (7.4-10.4); MONOCYTES 10.3 % (2-11); NEUTROPHILS 46.6 % (40-80); PLATELET COUNT 226 10x3/uL (130-400); RBC 4.42 10x6/uL (4.20-6.10); RDW 14.4 % (11.5-14.5); WBC 11.7 10x3/uL (4.8-10.8)
[2019-12-23 06:56] LABS: CALC OSMOLALITY 282 mosm/kg (275-300); CALCIUM 8.5 mg/dL (8.5-10.1); CARBON DIOXIDE 25.7 mmol/L (21.0-32.0); CHLORIDE - SERUM 105 mmol/L (98-107); CREATININE - SERUM 0.8 mg/dL (0.6-1.3); POTASSIUM - SERUM 3.9 mmol/L (3.5-5.1); SODIUM 141 mmol/L (136-145); UREA NITROGEN 13 mg/dL (7-18); eGFR NON AFRICAN AMERICAN > 90 mL/min (90-120)
[2019-12-23 06:58] LABS: GLUCOSE 141 mg/dL (74-106); PHOSPHOROUS 3.9 mg/dL (2.5-4.9)
[2019-12-23 11:47] VITALS: BP 127/52
[2019-12-23] MEDS ORDERED: TESSALON PERLE100 MG PO (14:08)
[2019-12-23] MEDS ORDERED: OMNICEF300 MG PO (14:09)
[2019-12-23] MEDS ORDERED: MUCINEX600 MG PO (14:09)
[2019-12-23] MEDS ORDERED: SYMBICORT 16010.2 GM INH (14:10)
[2019-12-23] MEDS ORDERED: AZITHROMYCIN500 MG PO (14:10)
--- NOTE | 2019-12-23 16:30 | NUR ---
PATIENT RECIEVED DC INSTRUCTIONS. VERBALIZED UNDERSTANDING. NO QUESTIONS AT THIS TIME. IV REMOVED WITH CATH TIP INTACT. CALL LIGHT WITHIN REACH. WAITING ON WC FOR DC.
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
[2019-12-26] MEDS ORDERED: TYLENOL W/CODEI1 TAB PO (18:51)
== END 2019-12-23 17:34 | disposition home or self-care (01) | DRG 922 ==
LOC: D.ER 19:02 → D.MS 23:22 → D.ICU 23:22 → D.MS 12-21 16:59
PROVIDERS: Family Medicine; ADMIT Family Medicine; ATTEND Family Medicine
DX: T79.8XXA Other early complications of trauma, initial encounter (principal); J18.9 Pneumonia, unspecified organism; E11.9 Type 2 diabetes mellitus without complications; I10 Essential (primary) hypertension; S22.20XD Unspecified fracture of sternum, subsequent encounter for fracture with routine healing; S20.219A Contusion of unspecified front wall of thorax, initial encounter; V89.2XXD Person injured in unspecified motor-vehicle accident, traffic, subsequent encounter

== ENCOUNTER 2019-12-26 16:24 | Emergency (ER) | payer MEDICAID ==
[~2019-12-26] VITALS: Ht 177.8 cm; Wt 100.0 kg
[2019-12-26 16:29] VITALS: BP 125/72; Ht 177.8 cm; Wt 100.0 kg
== END 2019-12-26 19:15 | disposition home or self-care (01) ==
LOC: D.ER 16:24
DX: R07.89 Other chest pain (principal); E11.9 Type 2 diabetes mellitus without complications; I10 Essential (primary) hypertension; E78.5 Hyperlipidemia, unspecified; I25.2 Old myocardial infarction; J44.9 Chronic obstructive pulmonary disease, unspecified; Z72.0 Tobacco use

== ENCOUNTER → 2020-01-11 18:01 | Outpatient (CLI) | payer MEDICAID ==
[2019-12-26 16:29] VITALS: BMI 31.6
[~2020-01-11 18:01] MED LIST changes: +AZITHROMYCIN500 MG PO; +KLONOPIN1 MG PO; +MUCINEX600 MG PO; +OMNICEF300 MG PO; +SYMBICORT 16010.2 GM INH; +TESSALON PERLE100 MG PO; +ZANAFLEX2 M1 PO; +ZOLOFT50 MG PO
[2020-01-11 18:20] LABS: CHOL - HDL RATIO 5.2 ratio (2.3-4.9); LDL-HDL RATIO 2.7 ratio (1.5-3.5)
== END | disposition home or self-care (01) ==
LOC: D.LABREF 18:01
PROVIDERS: ATTEND Internal Medicine Interventional Cardiology
DX: E78.5 Hyperlipidemia, unspecified (principal)